=== PATIENT | female | born 1975 ===

== ENCOUNTER 2017-09-03 02:06 | Inpatient (IN) | payer MEDICAID, OTHER ==
[2017-09-03 02:06] VITALS: BMI 28.7
[2017-09-03] MEDS ORDERED: Sodium Chloride 0.9% 1,000 ML IV STA (02:55)
--- NOTE | 2017-09-03 03:02 | ED PDOC ---
HPI: Hypertension/Hypotension Chief Complaint (Provider): palpitations History Per: Patient History/Exam Limitations: no limitations Onset/Duration Of Symptoms: Hrs Current Symptoms Are (Timing): Still Present Additional Complaint(s): 41 y/o female presents for evaluation of palpitations x 4 hours. Patient reports associated "pressure" when palpitations present. Patient crying, states she is under a lot of stress lately with her daughter's father due to legal issues involving visitation rights. Patient states she has been staying at a [facility] for a few months, and states she was given some cooked beans by patient' s fathers new significant other Friday which she developed abdominal discomfort and diarrhea shortly after eating. Patient states her urine smelled like rat poison that night, and would like to be tested for it and have her stomach "flushed". Patient states she drank prune juice today to try and flush everything out. Denies fever, headache, dizziness, chest pain, shortness of breath, abdominal pain, urinary symptoms, leg pain/swelling. <Madelaine Samuel - Last Filed: 09/03/17 06:01> <Kulwinder Giraldo - Last Filed: 09/03/17 06:54> Time Seen by Provider: 09/03/17 02:34 Chief Complaint (Nursing): Palpitations Past Medical History Reviewed: Historical Data, Nursing Documentation, Vital Signs Vital Signs: Last Vital Signs Temp Pulse 92 H 09/03/17 02:29 Resp 17 09/03/17 02:29 BP 155/109 H 09/03/17 02:29 Pulse Ox 98 09/03/17 02:29 - Medical History PMH: No Chronic Diseases - Family History Family History: States: No Known Family Hx <Madelaine Samuel - Last Filed: 09/03/17 06:01> Vital Signs: Last Vital Signs Temp 98.0 F 09/03/17 05:27 Pulse 74 09/03/17 05:27 Resp 16 09/03/17 05:27 BP 159/59 H 09/03/17 05:27 Pulse Ox 98 09/03/17 06:03 <Kulwinder Giraldo - Last Filed: 09/03/17 06:54> - Home Medications Home Medications: Ambulatory Orders Medication Instructions Recorded Multivit/Folic Acid/I 1 tab PO DAILY 03/17/16 [] Ibuprofen [Motrin] 600 mg PO Q6 PRN #30 tab 06/12/16 Ondansetron [Zofran] 4 mg PO Q8H #12 tab 09/03/17 - Allergies Allergies/Adverse Reactions: Allergies Allergy/AdvReac Type Severity Reaction Status Date / Time Penicillins Allergy RASH Verified 03/17/16 10:51 Review of Systems ROS Statement: Except As Marked, All Systems Reviewed And Found Negative Cardiovascular: Positive for: Palpitations <Madelaine Samuel - Last Filed: 09/03/17 06:01> Physical Exam - Reviewed Nursing Documentation Reviewed: Yes Vital Signs Reviewed: Yes - Physical Exam Appears: Positive for: Well, Non-toxic, Uncomfortable (tearful) Head Exam: Positive for: ATRAUMATIC, NORMAL INSPECTION, NORMOCEPHALIC Skin: Positive for: Normal Color Eye Exam: Positive for: Normal appearance ENT: Positive for: Normal ENT Inspection Cardiovascular/Chest: Positive for: Regular Rate, Rhythm Respiratory: Positive for: Normal Breath Sounds Gastrointestinal/Abdominal: Positive for: Normal Exam Back: Positive for: Normal Inspection Extremity: Positive for: Normal ROM Neurologic/Psych: Positive for: Alert, Oriented <Madelaine Samuel - Last Filed: 09/03/17 06:01> - Laboratory Results Result Diagrams: 09/03/17 03:10 09/03/17 03:10 - ECG ECG: Positive for: Viewed By Me (reviewed by ED attending) ECG Rhythm: Positive for: Sinus Rhythm O2 Sat by Pulse Oximetry: 98 - Progress ED Course And Treament: ekg, labs, urine, IV fluids, crisis eval <Madelaine Samuel - Last Filed: 09/03/17 06:01> - Laboratory Results Result Diagrams: 09/03/17 03:10 09/03/17 03:10 <Kulwinder Giraldo - Last Filed: 09/03/17 06:54> Medical Decision Making Medical Decision Makin PAtient cleared by crisis, diagnosis of anxiety disorder by Dr. Freedman. Patient is tolerating PO, well appearing upon discharge. <Kulwinder Giraldo - Last Filed: 09/03/17 06:54> Disposition - Disposition Disposition Time: 06:00 <Madelaine Samuel - Last Filed: 09/03/17 06:01> - Disposition Disposition: Routine/Home Disposition Time: 06:45 <Kulwinder Giraldo - Last Filed: 09/03/17 06:54> - Clinical Impression Clinical Impression: Palpitations, Gastroenteritis - Disposition Referrals: Hilda Kirby MD [Primary Care Provider] - Condition: STABLE Prescriptions: Ondansetron [Zofran] 4 mg PO Q8H #12 tab Instructions: Gastroenteritis (ED) Forms: [facility] (Somali)
[2017-09-03 03:21] LABS: BASO # 0.1 K/uL (0.0-0.2); BASO % 1.2 % (0.0-2.0); EOS % 0.4 % (0.0-4.0); HEMOGLOBIN 12.7 g/dL (12.0-16.0); LYMPH # 1.6 K/uL (1.0-4.3); MEAN CELL VOLUME 89.9 fl (81.0-99.0); MEAN CORPUSCULAR HEMOGLOBIN 31.6 pg (27.0-31.0); MEAN CORPUSCULAR HGB CONC 35.1 g/dL (33.0-37.0); MEAN PLATELET VOLUME 7.5 fl (7.2-11.7); MONO # 0.6 K/uL (0.0-0.8); MONO % 8.2 % (0.0-10.0); NEUT # 4.6 K/uL (1.8-7.0); NEUT % 67.2 % (50.0-75.0); RBC 4.02 Mil/uL (3.80-5.20); RED CELL DISTRIBUTION WIDTH 12.7 % (11.5-14.5); WHITE BLOOD COUNT 6.8 K/uL (4.8-10.8)
[2017-09-03 03:32] LABS: ALB/GLOB RATIO 1.3 (1.0-2.1); ALBUMIN 4.9 g/dL (3.5-5.0); ALT/SGPT 53 U/L (9-52); AST/SGOT 27 U/L (14-36); BLOOD UREA NITROGEN 12 mg/dl (7-17); CALCIUM 9.7 mg/dL (8.4-10.2); GFR AFRICAN-AMERICAN > 60; GFR NON-AFRICAN AMERICAN > 60
[2017-09-03 05:37] VITALS: O2SAT 98
[2017-09-03 07:38] LABS: SQUAMOUS EPITHIAL 1 /hpf (0-5); URINE BACTERIA RARE (<OCC); URINE BILIRUBIN NEGATIVE (NEGATIVE); URINE BLOOD SMALL (NEGATIVE); URINE CLARITY CLEAR (Clear); URINE COLOR STRAW (YELLOW); URINE GLUCOSE (UA) NEG (Normal); URINE LEUKOCYTE ESTERASE NEG Leu/uL (Negative); URINE PROTEIN NEGATIVE (NEGATIVE); URINE UROBILINOGEN 0.2-1.0 mg/dL (0.2-1.0)
--- NOTE | 2017-09-03 08:05 | ED PDOC ---
- Laboratory Results Result Diagrams: 09/04/17 07:41 09/04/17 07:41 - ECG O2 Sat by Pulse Oximetry: 98 Medical Decision Making Medical Decision Making: Patient signed out to me by Dr. Giraldo pending crisis evaluation. 8:10 Crisis evaluation: Delusional disorder to Dr. Freedman. Scribe Attestation: Documented by Jared Milian acting as a scribe Glenda Mccord MD. Scribe Attestation: All medical record entries made by the Scribe were at my direction and personally dictated by me. I have reviewed the chart and agree that the record accurately reflects my personal performance of the history, physical exam, medical decision making, and the department course for this patient. I have also personally directed, reviewed, and agree with the discharge instructions and disposition. Disposition - Clinical Impression Clinical Impression: Palpitations, Gastroenteritis, Delusional disorder - POA Present On Arrival: None - Disposition Disposition: Admitted as In-Patient Disposition Time: 08:00 Condition: STABLE
[2017-09-03 08:24] LABS: BARBITURATES, UR NEGATIVE (NEGATIVE); BENZODIAZEPINES, UR NEGATIVE (NEGATIVE); OPIATES, UR NEGATIVE (NEGATIVE); PHENCYCLIDINE, UR NEGATIVE (NEGATIVE)
[2017-09-03] MEDS ORDERED: DiphenhydrAMINE 50 mg/ml Inj IM PRN (11:50)
[2017-09-03] MEDS ORDERED: Magnesium Hydroxide Susp 30 ml UD PO PRN (11:50)
[2017-09-03 12:28] LABS: HDL CHOLESTEROL 56 MG/DL (30-70)
[2017-09-03 12:40] LABS: LDL CHOLESTEROL 107 mg/dL (0-129)
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
--- NOTE | 2017-09-03 16:40 | PCM.BM ---
<Lo Quinones - Last Filed: 09/03/17 16:38> Treatment Plan Problems - Problems identified on initial assessmt Hopelessness/Helplessness Date Initiated: 09/03/17 Time Initiated: 11:00 Assessment reference: NA Status: Active Treatment assets and liabiliti Patient Assests: cooperative, self-reliant, ADL independent, physically healthy , negotiates basic needs, other Patient Liabilities: financial problems, poor support system, relationship conflicts, other - Milieu Protocol Milieu Narrative: START LEXAPRO 5MG WITH PLAN TO UPTITRATE START RISPERIDONE 0.5MG QHS TRAZODONE PRN FOR INSOMNIA CBT GROUP AND SUPPORTIVE THERAPY Discharge/Continuing Care - Treatment Team Participation Patient/Family/SO Statement: START LEXAPRO 5MG WITH PLAN TO UPTITRATE START RISPERIDONE 0.5MG QHS TRAZODONE PRN FOR INSOMNIA CBT GROUP AND SUPPORTIVE THERAPY <Giorgi Amanda - Last Filed: 09/07/17 15:22> Family Contact Family involvement: Family/SO is involved Family contact: Patient agrees to contact, Family has been contacted by patient , Telephone contact initiated by staff Family contact name: Wade (Brothers) Family contacted how many times per week?: 4 Family contact comment: Sales Exec spoke to pt's brothers (Say ([phone]) and Quinton ([phone])) to gain collateral. Brothers reported that they had no idea pt had been decompensating until the day before admission when she sent them a text messages asking them to care for her daughter and bequeathing her belongings. Brothers [place] [facility] [place] had gnosticism preoccupation. Psychoeducation was provided as brothers did not seem to understand how fixed pt's delusions could be. Brothers have concerns for pt' s daughter at this time and pt's one brother plans to take pt and her daughter in once pt is discharged from hospital. Brothers reported that pt is very intelligent and is easily able to minimize her current symptoms. - Goals for Treatment Patient goals for treatment: Pt is currently delusional and lacks complete insight into her condition. Pt can only identify possible somatic complaints that appear to be delusions. Patient's family/SO goals for treatment: Pt's family would like pt to be stabilized so she can adequetly care for her daughter. Discharge/Continuing Care - Education Needs Education Needs: Family Medication, Family Diagnosis/Disease Process, Family Coping Skills, Family Placement options, Family Community resources, Family Aftercare Safety Plan, Patient Medication, Patient Diagnosis/Disease Process, Patient Coping Skills, Patient Placement options, Patient Community resources, Patient Aftercare Safety Plan - Discharge Discharge Criteria: Tolerates medication w/o severe side effects, Free of paranoid thoughts, Free of agitation, Normal sleep pattern, Ability to care for self, Reduction of target symptoms Discharge to:: Home, With Family - Additional Comments 09/07/17 15:24 Pt is still acutely psychotic and her thought process is consumed with paranoia and delusions. Pt cannot appropriately participate in her treatment at this time. - Treatment Team Participation Discussed with Family/SO: Yes Was Patient/Family/SO present at Treatment Team Meeting: Yes <Charlie Medina - Last Filed: 09/15/17 14:40> - Diagnosis (1) Depression Status: Acute Interventions: psychotherapy, pharmacotherapy 09/09/17 14:52
[2017-09-03] MEDS: Alum-Mag Hydrox-Simethicone Susp (30 mL) PO PRN (18:21)
[2017-09-03] MEDS ORDERED: Risperidone M tab 0.5MG PO SCH (22:00)
[2017-09-04 07:57] LABS: BASO # 0.1 K/uL (0.0-0.2); EOS % 0.5 % (0.0-4.0); HEMOGLOBIN 12.2 g/dL (12.0-16.0); LYMPH # 1.8 K/uL (1.0-4.3); MEAN CELL VOLUME 90.7 fl (81.0-99.0); MEAN CORPUSCULAR HEMOGLOBIN 31.4 pg (27.0-31.0); MEAN CORPUSCULAR HGB CONC 34.6 g/dL (33.0-37.0); MEAN PLATELET VOLUME 7.8 fl (7.2-11.7); MONO # 0.5 K/uL (0.0-0.8); MONO % 8.4 % (0.0-10.0); NEUT % 62.1 % (50.0-75.0); NRBC % 0.1 % (0.0-0.0); RBC 3.9 Mil/uL (3.80-5.20); RED CELL DISTRIBUTION WIDTH 12.9 % (11.5-14.5); WHITE BLOOD COUNT 6.4 K/uL (4.8-10.8)
[2017-09-04 08:22] LABS: ALB/GLOB RATIO 1.2 (1.0-2.1); ALBUMIN 4.3 g/dL (3.5-5.0); ALT/SGPT 42 U/L (9-52); AST/SGOT 22 U/L (14-36); BLOOD UREA NITROGEN 11 mg/dl (7-17); CALCIUM 9.2 mg/dL (8.4-10.2); GFR AFRICAN-AMERICAN > 60; GFR NON-AFRICAN AMERICAN > 60
[2017-09-04 08:32] LABS: T4 11.2 ug/dl (5.5-11.0)
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
[2017-09-04] MEDS ORDERED: Risperidone M tab 1 MG PO SCH (22:00)
[2017-09-05] MEDS ORDERED: Risperidone M TAB 2 MG PO SCH (09:00)
--- NOTE | 2017-09-05 14:03 | PCM.PYCHPN ---
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 Problems Identified/Issues Discussed: pt evaluated with treatment team, continues to be guarded, evasive, showing limited into her illness ,argumentative about her medications and needs a lot of encouragement to take her medicine, pt continues to relate her problems to her living situation, being homeless also continues to have delusions of persecution reporting that her food has been poisened and that the [employer] workers were against her and claimed that she has mental illness discussed with patient importance of compliance with medications and also that through social media developer a meeting will be arranged with [facility] case sealer pt denied any current side effects , continues to be secclusive in her room pt denied command hallucinations, denied suicidal or homicidal ideations Medical Problems: PER PT BROTHER patient was admitted in 2004 or around that time at [facility] due to bizarre behavior. Patient was pouring water on herself, was depressed, suicidal, patient slept all day and was pacing during the night. Patient had erratic behavior and was not in compliance with her medication. [facility] collateral information/ spoke with Jessy who stated that patient was admitted from 05/17/2002 thru 06/02/2002. 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 Medication Change: Yes (increase lexapro) Medical Record Reviewed: Yes Mental Status Examination - Cognitive Function Orientation: Person, Place Attention: WNL Concentration: Poor Association: Loose Fund of Knowledge: Poor Decription of patient's judgement and insights: poor insight and judgment - Mood Mood: Depressed, Anxious - Affect Affect: Constricted, Depressed - Speech Speech: Soft - Formal Thought Process Formal Thought Process: Delusions, Paranoia, Circumstantial - Suicidal Ideation Suicidal Ideation: No - Homicidal Ideation Homicidal Ideation: No Goal/Treatment Plan - Goal/Treatment Plan Need for Continued Stay: Severe depression anxiety, Discharge may exacerbated symptoms Progress Toward Problem(s) and Goals/Treatment Plan: lexapro 10mg daily risperidone 1mg qhs encourage medication compliance [facility] Estimated Date of D/C: 09/11/17
[2017-09-05] MEDS: Alum-Mag Hydrox-Simethicone Susp (30 mL) PO PRN (16:53)
[2017-09-05] MEDS: Risperidone M tab 1 MG PO SCH (21:10)
[2017-09-05] MEDS ORDERED: Risperidone M tab 0.5MG PO SCH (22:00)
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
[2017-09-06] MEDS: Risperidone M tab 1 MG PO SCH (21:27)
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
[2017-09-07] MEDS: Alum-Mag Hydrox-Simethicone Susp (30 mL) PO PRN (21:25)
[2017-09-07] MEDS: Risperidone M tab 0.5MG PO SCH (21:51)
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
[2017-09-08] MEDS: Risperidone M tab 0.5MG PO SCH (21:06)
[2017-09-09] MEDS: Risperidone M TAB 2 MG PO SCH ×2 (21:08→21:09)
--- NOTE | 2017-09-10 14:59 | PCM.PYCHPN ---
Psychiatric Progress Note - Psychiatric Progress Note Patient seen today, length of contact: pt evaluated discussed with team chart reviewed Patient Chief Complaint: I want to be good for my daughter Problems Identified/Issues Discussed: pt evaluated , appears calmer today, reported feeling better that she now is allowed to reside with her brother, pt continues to be minimizing her symptoms, stating she has only physical rather than mental illness, discussed with pt the effect of the stress she has been through on her current mental health and the importance of compliance with medications, to be able to handle her daughter responsibility, pt agreed on the increase in risperidone pt denied command hallucinations, denied suicidal or homicidal ideations, no reported side effects of medications Medical Problems: PER PT BROTHER patient was admitted in 2004 or around that time at [facility] due to bizarre behavior. Patient was pouring water on herself, was depressed, suicidal, patient slept all day and was pacing during the night. Patient had erratic behavior and was not in compliance with her medication. [facility] collateral information/ spoke with Jessy who stated that patient was admitted from 05/17/2002 thru 06/02/2002. Patient had another visit to the ER on 2002 but was discharged from the ER history of non compliance with treatment DSM 5 Symptoms Update: major depression with psychotic features Medication Change: No Medical Record Reviewed: Yes Mental Status Examination - Cognitive Function Orientation: Person, Place Attention: WNL Concentration: WNL Association: WN Fund of Knowledge: [facility] Decription of patient's judgement and insights: poor insight and judgment - Mood Mood: Depressed, Anxious - Affect Affect: Constricted, Depressed - Speech Speech: Soft - Formal Thought Process Formal Thought Process: Delusions, Paranoia, Circumstantial Psychotic Thoughts and Behaviors: somatic and paranoid delusions, denied perceptual disturbances - Suicidal Ideation Suicidal Ideation: No - Homicidal Ideation Homicidal Ideation: No Goal/Treatment Plan - Goal/Treatment Plan Need for Continued Stay: Severe depression anxiety, Discharge may exacerbated symptoms Progress Toward Problem(s) and Goals/Treatment Plan: lexapro 10mg daily risperidone 2mg qhs encourage medication compliance CBT and supportive therapy Estimated Date of D/C: 09/11/17
[2017-09-10] MEDS: Risperidone M TAB 2 MG PO SCH (21:14)
[2017-09-11] MEDS ORDERED: risperiDONE Consta 25mg/2ml Syringe IM ONE (10:30)
--- NOTE | 2017-09-11 19:32 | PCM.PYCHPN ---
Psychiatric Progress Note - Psychiatric Progress Note Patient seen today, length of contact: pt evaluated discussed with team chart reviewed Patient Chief Complaint: I want to start a new life Problems Identified/Issues Discussed: pt evaluated , calmer , less guarded, pt continues to be minimizing her symptoms, stating she has only physical rather than mental illness, discussed with pt the effect of the stress she has been through on her current mental health and the importance of compliance with medications, to be able to handle her daughter responsibility, pt agreed to be on risperidone consta to ensure compliance pt denied command hallucinations, denied suicidal or homicidal ideations, no reported side effects of medications Medical Problems: PER PT BROTHER patient was admitted in 2004 or around that time at [facility] due to bizarre behavior. Patient was pouring water on herself, was depressed, suicidal, patient slept all day and was pacing during the night. Patient had erratic behavior and was not in compliance with her medication. [facility] collateral information/ spoke with Jessy who stated that patient was admitted from 05/17/2002 thru 06/02/2002. Patient had another visit to the ER on 2002 but was discharged from the ER history of non compliance with treatment DSM 5 Symptoms Update: major depression with psychotic features Medication Change: Yes (risperidone consta) Medical Record Reviewed: Yes Mental Status Examination - Cognitive Function Orientation: Person, Place Attention: WNL Concentration: WNL Association: WNL Fund of Knowledge: [facility] Decription of patient's judgement and insights: poor insight and judgment - Mood Mood: Depressed, Anxious - Affect Affect: Constricted, Depressed - Speech Speech: Soft - Formal Thought Process Formal Thought Process: Delusions, Paranoia, Circumstantial Psychotic Thoughts and Behaviors: somatic and paranoid delusions, denied perceptual disturbances - Suicidal Ideation Suicidal Ideation: No - Homicidal Ideation Homicidal Ideation: No Goal/Treatment Plan - Goal/Treatment Plan Need for Continued Stay: Severe depression anxiety, Discharge may exacerbated symptoms Progress Toward Problem(s) and Goals/Treatment Plan: lexapro 10mg daily risperidone 1mg qhs, risperidone consta 25mg IM 1st dose today encourage medication compliance CBT and supportive therapy Estimated Date of D/C: 09/11/17
[2017-09-11] MEDS: Risperidone M tab 1 MG PO SCH (21:17)
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
[2017-09-12] MEDS: Risperidone M tab 1 MG PO SCH (21:05)
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
[2017-09-13] MEDS: Risperidone M tab 1 MG PO SCH (21:37)
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
[2017-09-14] MEDS: Risperidone M tab 1 MG PO SCH (21:19)
[2017-09-15 17:51] VITALS: BP 125/61; PULSE 69; RESP 18; TEMP 97.9
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
[2017-09-15] MEDS: Risperidone M tab 1 MG PO SCH (21:26)
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
== END 2017-09-16 11:19 | disposition home or self-care (01) | DRG 430 ==
LOC: H.ER 02:06 → H.ERHOLD 08:16 → H.PSYCH 11:19
PROVIDERS: ADMIT Psychiatry & Neurology Psychiatry; ATTEND Psychiatry & Neurology Psychiatry
PROC: GZ51ZZZ Individual Psychotherapy, Behavioral (ICD-10-PCS; 2017-09-03)
PROC: GZHZZZZ Group Psychotherapy (ICD-10-PCS; principal; 2017-09-06)
DX: F33.3 Major depressive disorder, recurrent, severe with psychotic symptoms (principal); K52.9 Noninfective gastroenteritis and colitis, unspecified; F43.10 Post-traumatic stress disorder, unspecified; G47.00 Insomnia, unspecified; I10 Essential (primary) hypertension; Z59.0 Homelessness; Z91.19 Patient's noncompliance with other medical treatment and regimen; F31.9 Bipolar disorder, unspecified